=== PATIENT | female | born 1985 | race Caucasian/White ===

== ENCOUNTER 2020-01-21 09:23 | Emergency (ER) | payer SELFPAY ==
--- NOTE | 2020-01-21 09:51 | Emergency Department Report ---
ED Female HPI - General Chief complaint: Vaginal Bleeding Stated complaint: 9 WKS PREG AND VAGINAL BLEEDING Time Seen by Provider: 01/21/20 09:44 Source: patient Mode of arrival: Ambulatory Limitations: No Limitations - History of Present Illness Initial comments: Patient is a 34-year-old female presents emergency room with complaints of very light vaginal spotting which occurred this morning when she wiped. She denies any heavy bleeding. She states that she has some mild lower abdominal cramping. She states that she is approximately 10 weeks . She states that her [facility] is going to be at [facility] and her first appointment is on 01/24/2020. She has not yet had this confirmed. She denies any dysuria, nausea, vomiting, fever. She states her last menstrual cycle was November 14, 2019. She has a PMHx of preclampsia in third trimester with her previous . she denies any allergies to medications. /P:3/A:0 - Related Data Home Medications Medication Instructions Recorded Confirmed Last Taken No Known Home Medications [No 10/30/15 10/30/15 Unknown Reported Home Medications] Allergies Allergy/AdvReac Type Severity Reaction Status Date / Time avocado Allergy Anaphylaxis Unverified 10/28/15 20:58 banana Allergy Anaphylaxis Unverified 10/28/15 20:58 watermelon Allergy Anaphylaxis Unverified 10/28/15 20:58 ED Review of Systems ROS: Stated complaint: 9 WKS PREG AND VAGINAL BLEEDING Other details as noted in HPI Comment: All other systems reviewed and negative ED Past Medical Hx - Past Medical History Previous Medical History?: Yes Hx Hypertension: No Hx Congestive Heart Failure: No Hx Diabetes: No Hx Deep Vein Thrombosis: No Hx Renal Disease: No Hx Sickle Cell Disease: No Hx Seizures: No Hx Asthma: No Hx COPD: No Hx HIV: No Additional medical history: Vaginal delivery x 3 - Surgical History Past Surgical History?: No - Social History Smoking Status: Never Smoker Substance Use Type: None - Medications Home Medications: Home Medications Medication Instructions Recorded Confirmed Last Taken Type No Known Home Medications [No 10/30/15 10/30/15 Unknown History Reported Home Medications] ED Physical Exam - General Limitations: No Limitations General appearance: alert, in no apparent distress - Head Head exam: Present: atraumatic, normocephalic - Eye Eye exam: Present: normal appearance - ENT ENT exam: Present: mucous membranes moist - Respiratory Respiratory exam: Present: normal lung sounds bilaterally. Absent: respiratory distress, wheezes, rales, rhonchi, stridor, chest wall tenderness, accessory muscle use, decreased breath sounds, prolonged expiratory - Cardiovascular Cardiovascular Exam: Present: regular rate, normal rhythm, normal heart sounds. Absent: systolic murmur, diastolic murmur, rubs, gallop - GI/Abdominal GI/Abdominal exam: Present: soft, normal bowel sounds. Absent: distended, tende rness, guarding, rebound, rigid - Neurological Exam Neurological exam: Present: alert, oriented X3 - Psychiatric Psychiatric exam: Present: normal affect, normal mood - Skin Skin exam: Present: warm, dry, intact ED Course Vital Signs 01/21/20 01/21/20 01/21/20 09:29 09:30 10:06 Temperature 98.5 F 98.5 F Pulse Rate 96 H 90 Respiratory 20 18 18 Rate Blood Pressure 131/79 131/79 O2 Sat by Pulse 99 100 Oximetry 01/21/20 01/21/20 10:48 12:24 Temperature Pulse Rate 90 Respiratory 18 Rate Blood Pressure 98/71 O2 Sat by Pulse 99 100 Oximetry ED Medical Decision Making - Lab Data Result diagrams: 01/21/20 09:54 Lab Results 01/21/20 01/21/20 01/21/20 Range/Units 09:54 09:54 09:54 WBC 8.0 (4.5-11.0) K/mm3 RBC 4.29 (3.65-5.03) M/mm3 Hgb 13.0 (10.1-14.3) gm/dl Hct 38.7 (30.3-42.9) % MCV 90 (79-97) fl MCH 30 (28-32) pg MCHC 34 (30-34) % RDW 13.8 (13.2-15.2) % Plt Count 302 (140-440) K/mm3 Lymph % (Auto) 25.8 (13.4-35.0) % Wake % (Auto) 5.4 (0.0-7.3) % Eos % (Auto) 1.3 (0.0-4.3) % Baso % (Auto) 0.4 (0.0-1.8) % Lymph # 2.1 (1.2-5.4) K/mm3 Wake # 0.4 (0.0-0.8) K/mm3 Eos # 0.1 (0.0-0.4) K/mm3 Baso # 0.0 (0.0-0.1) K/mm3 Seg Neutrophils % 67.1 (40.0-70.0) % Seg Neutrophils # 5.3 (1.8-7.7) K/mm3 HCG, Quant 73300 H (0-4) mIU/mL Urine Color (Yellow) Urine Turbidity (Clear) Urine pH (5.0-7.0) Ur Specific [place] (1.003-1.030) Urine Protein (Negative) mg/dL Urine Glucose (UA) (Negative) mg/dL Urine Ketones (Negative) mg/dL Urine Blood (Negative) Urine Nitrite (Negative) Urine Bilirubin (Negative) Urine Urobilinogen (<2.0) mg/dL Ur Leukocyte Esterase (Negative) Urine WBC (Auto) (0.0-6.0) /HPF Urine RBC (Auto) (0.0-6.0) /HPF U Epithel Cells (Auto) (0-13.0) /HPF Urine Bacteria (Auto) (Negative) /HPF Blood Type O POSITIVE Ord Rhogam Gestat Weeks Rh pos WEEKS 01/21/20 Range/Units 10:48 WBC (4.5-11.0) K/mm3 RBC (3.65-5.03) M/mm3 Hgb (10.1-14.3) gm/dl Hct (30.3-42.9) % MCV (79-97) fl MCH (28-32) pg MCHC (30-34) % RDW (13.2-15.2) % Plt Count (140-440) K/mm3 Lymph % (Auto) (13.4-35.0) % Wake % (Auto) (0.0-7.3) % Eos % (Auto) (0.0-4.3) % Baso % (Auto) (0.0-1.8) % Lymph # (1.2-5.4) K/mm3 Wake # (0.0-0.8) K/mm3 Eos # (0.0-0.4) K/mm3 Baso # (0.0-0.1) K/mm3 Seg Neutrophils % (40.0-70.0) % Seg Neutrophils # (1.8-7.7) K/mm3 HCG, Quant (0-4) mIU/mL Urine Color Straw (Yellow) Urine Turbidity Clear (Clear) Urine pH 8.0 H (5.0-7.0) Ur Specific [place] 1.004 (1.003-1.030) Urine Protein <15 mg/dl (Negative) mg/dL Urine Glucose (UA) Neg (Negative) mg/dL Urine Ketones Neg (Negative) mg/dL Urine Blood Sm (Negative) Urine Nitrite Neg (Negative) Urine Bilirubin Neg (Negative) Urine Urobilinogen < 2.0 (<2.0) mg/dL Ur Leukocyte Esterase Tr (Negative) Urine WBC (Auto) < 1.0 (0.0-6.0) /HPF Urine RBC (Auto) 1.0 (0.0-6.0) /HPF U Epithel Cells (Auto) 2.0 (0-13.0) /HPF Urine Bacteria (Auto) 1+ (Negative) /HPF Blood Type Ord Rhogam Gestat Weeks WEEKS - Radiology Data Radiology results: report reviewed OB ultrasound FINDINGS: Intrauterine gestational sac is seen with a yolk sac but no pole identified. Gestational sac measurements reveal an MA of 6 weeks 4 days for an CARMITA of 09/11/2020 but again no pole is identified. Left ovary measures 2.5 x 2.1 x 1.4 cm and appears normal. The right ovary measures 3.5 x 3 x 1.7 cm and contains a simple appearing 2.1 cm corpus luteum cyst. Is minimal free fluid. IMPRESSION: Early IUP versus demise. Correlation with beta hCG levels may be of benefit. Signer Name: Zaid Jackson MD Signed: 01/21/2020 11:02 AM Workstation Name: [id number] Transcribed By: RICARDO Dictated By: Zaid Jackson MD Electronically Authenticated By: Zaid Jackson MD Signed Date/Time: 01/21/20 1102 DD/ 1059 TD/TT: - Medical Decision Making Patient is a 34-year-old female presents emergency room with complaints of very light vaginal spotting which occurred this morning when she wiped. She denies any heavy bleeding. She states that she has some mild lower abdominal cramping. She states that she is approximately 10 weeks . She states that her [facility] is going to be at my [facility] and her first appointment is on 01/24/2020. She has not yet had this confirmed. She denies any dysuria, nausea, vomiting, fever. She states her last menstrual cycle was November 14, 2019. She has a PMHx of preclampsia in third trimester with her previous . she denies any allergies to medications. /P:3/A:0. Vitals are normal. No abnormality on physical examination as documented in chart. [place] [address]. UA without evidence of UTI. US OB: Early IUP versus demise. Correlation with beta hCG levels may be of benefit. Patient has no previous hCG quant's to compare to. Discussed all results with patient and discussed threatened miscarriage. pt given copy of her US report to take to the [facility]. Advised patient Please practice pelvic rest. Please follow-up with your [facility] in the next 2 to 3 days, you need to have a repeat hCG quant. Today (01/21/20) [place] [id number]. return to the emergency room for any new or worsening symptoms. - Differential Diagnosis IUP, ectopic, miscarriage, subchorionic hemorrhage, ovarian cyst, UTI Critical care attestation.: If time is entered above; I have spent that time in minutes in the direct care of this critically ill patient, excluding procedure time. ED Disposition Clinical Impression: Threatened miscarriage Disposition: DC-01 TO HOME OR SELFCARE Is pt being admited?: No Does the pt Need Aspirin: No Condition: Stable Instructions: Threatened Miscarriage (ED) Additional Instructions: Please practice pelvic rest. Please follow-up with your [facility] in the next 2 to 3 days, you need to have a repeat hCG quant. Today (01/21/20) [place] quant was [id number]. return to the emergency room for any new or worsening symptoms. Referrals: [facility] [Provider Group] - 2-3 Days Time of Disposition: 12:03 Print Language: [place]LAND[place]
[2020-01-21] MEDS ORDERED: ACETAMINOPHEN 325 MG TAB PO ONE (09:52)
[2020-01-21 10:21] LABS: Basophils % (Auto) 0.4 % (0.0-1.8); Eosinophils # (Auto) 0.1 K/mm3 (0.0-0.4); Eosinophils % (Auto) 1.3 % (0.0-4.3); Hematocrit 38.7 % (30.3-42.9); Lymphocytes # (Auto) 2.1 K/mm3 (1.2-5.4); Lymphocytes % (Auto) 25.8 % (13.4-35.0); Mean Corpuscular HGB Conc 34 % (30-34); Mean Corpuscular Volume 90 fl (79-97); Monocytes # (Auto) 0.4 K/mm3 (0.0-0.8); Monocytes % (Auto) 5.4 % (0.0-7.3); Platelet Count 302 K/mm3 (140-440); Red Blood Count 4.29 M/mm3 (3.65-5.03); Red Cell Distribution Width 13.8 % (13.2-15.2)
--- NOTE | 2020-01-21 11:06 | Ultrasound Report ---
OB ultrasound FINDINGS: Intrauterine gestational sac is seen with a yolk sac but no pole identified. Gestatio nal sac measurements reveal an MA of 6 weeks 4 days for an CARMITA of 09/11/2020 but again no pole i s identified. Left ovary measures 2.5 x 2.1 x 1.4 cm and appears normal. The right ovary measures 3.5 x 3 x 1.7 cm and contains a simple appearing 2.1 cm corpus luteum cyst. Is minimal free fluid. IMPRESSION: Early IUP versus demise. Correlation with beta hCG levels may be of benefit. Signer Name: Zaid Jackson MD Signed: 01/21/2020 11:02 AM Workstation Name: [id number]
[2020-01-21 11:46] LABS: Bacteria,Urine 1+ /HPF (Negative); Bilirubin,Urine NEG (Negative); Blood,Urine SM (Negative); Color,Urine Straw (Yellow); Protein,Urine <15 mg/dL mg/dL (Negative); Urobilinogen,Urine < 2.0 mg/dL (<2.0); WBC,Urine < 1.0 /HPF (0.0-6.0)
[2020-01-21 12:39] VITALS: BP 98/71
== END 2020-01-21 12:30 | disposition home or self-care (01) ==
LOC: ED 09:23
DX: O20.0 Threatened abortion (principal); Z3A.08 8 weeks gestation of pregnancy; Z88.8 Allergy status to other drugs, medicaments and biological substances
CPT/HCPCS: 36415; 76801; 76802; 76817; 81001; 84702; 85025; 86900; 86901

== ENCOUNTER 2020-06-05 18:01 | Outpatient (CLI) | payer OTHER ==
[2020-06-05] MEDS ORDERED: LACTATED RINGERS 1,000 ML IV SCH (19:00)
[2020-06-05 19:23] LABS: Bacteria,Urine 4+ /HPF (Negative); Bilirubin,Urine NEG (Negative); Blood,Urine SM (Negative); Color,Urine Straw (Yellow); Mucus,Urine FEW /HPF; Protein,Urine <15 mg/dL mg/dL (Negative); Urobilinogen,Urine < 2.0 mg/dL (<2.0)
[2020-06-05 22:21] VITALS: BP 114/67
--- NOTE | 2020-06-06 01:12 | Ultrasound Report ---
EXAMINATION: Renal ultrasound, 06/06/2020 CLINICAL INFORMATION: Left flank pain. The patient is . COMPARISON: None. FINDINGS: Both kidneys appear normal in size and echogenicity. The right kidney measures 13.3 cm. The left kidney measures 12.0 cm. There is no evidence of hydronephrosis. The urinary bladder appears within normal limits. IMPRESSION: No sonographic abnormality of either kidney. Signer Name: Chasity Chung MD Signed: 06/06/2020 1:07 AM Workstation Name: [id number]
== END 2020-06-06 01:29 | disposition home or self-care (01) ==
LOC: TRG 18:01 → APU 18:02 → TRG 06-06 01:29
PROVIDERS: ATTEND Obstetrics & Gynecology
DX: O26.892 Other specified pregnancy related conditions, second trimester (principal); M54.5 Low back pain; R10.11 Right upper quadrant pain; Z3A.25 25 weeks gestation of pregnancy
CPT/HCPCS: 59025; 76770; 81001

== ENCOUNTER 2020-11-30 06:42 | Day surgery (SDC) | payer OTHER ==
--- NOTE | 2020-11-28 08:15 | History and Physical Report ---
History of Present Illness Date of examination: 11/27/20 History of present illness: Patient has been reassessed/reevaluated. H&P has been reviewed. No interval changes. 35 YO patient desires sterilization. Discussed with various methods of contraceptives including abstinence, barrier and hormonal. Discussed oral, imp lantable, dermal, injectable,intravaginal and intrauterine methods. Patient declined temporary contraceptives. Discuss the permanency of sterilization. High risk of regret and 0.5 to 1% risk of failure. Questions answered Patient understands and desires to proceed. Vital Signs: Patient Profile: 35 Years Old Female LMP: 11/23/2020 Height: 64 inches Weight: 179 pounds BMI: 30.72 Temp: 96.4 degrees F BP sittin / 80 (left arm) Menstrual History: LMP (date): 11/23/2020 LMP - Character: normal On BCP's at conception: no Current Method of Contraception: None Date of Last Pap Smear: 04/02/2015 Past History : 4 Term Births: 4 Premature Births: 0 Living Children: 4 Para: 4 Mult. Births: 0 Prev : 0 Aborta: 0 Elect. Ab: 0 Spont. Ab: 0 Ectopics: 0 # 1 Delivery date: 09/24/2001 Weeks Gestation: 39 Delivery type: Anesthesia type: epidural Delivery location: [place] Infant Sex: Male weight: 6-15 Name: Woo # 2 Delivery date: 10/29/2015 Weeks Gestation: 38 Delivery type: Vaginal Anesthesia type: epidural Infant Sex: female weight: 7.50 Comments: pre-eclampsia/eclampsia # 3 Delivery date: 08/21/2017 Weeks Gestation: 39 labor: no Delivery type: Hours of labor: 24 Anesthesia type: epidural Delivery location[place] [facility] [place] Sex: Female weight: 7-? 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 of genital herpes: no Partner hx. of genital herpes: no Hx of STD: none Current Allergies: No known allergies Past Medical History: Negative Past Medical History Past Surgical History: Negative Past Surgical History Family History Summary: Other Family Member - Has No Family History of Ovarvian Cancer - Entered On: 04/02/2015 Other Family Member - Has No Family History of Hypertension - Entered On: 04/02/2015 Other Family Member - Has No Family History of Diabetes - Entered On: 04/02/2015 Other Family Member - Has No Family History of Colon Cancer - Entered On: Other Family Member - Has No Family History of Cervical Cancer - Entered On: 04/02/2015 Other Family Member - Has No Family History of Breast Cancer - Entered On: 04/02/2015 Social History: Marital Status: Children: 4 Occupation: unemployed Smoking History: Patient has never smoked. Risk Factors: Smoked Tobacco Use: Never smoker Smokeless Tobacco Use: Never Passive smoke exposure: no Drug use: no HIV high-risk behavior: no Caffeine use: 1 drinks per day Alcohol use: no Exercise: yes Times per week: 7 Seatbelt use: 100 % PAP Smear History: Date of Last PAP Smear: 04/02/2015 Review of Systems General Denies fever, chills, sweats, anorexia, fatigue, weakness, malaise, weight loss and sleep disorder. Denies vaginal discharge, incontinence, dysuria, hematuria, urinary frequency, amenorrhea, menorrhagia, abnormal vaginal bleeding, pelvic pain, genital sores, decreased libido, painful periods, painful sex, urinary urgency, hot flashes, vaginal dryness, vaginal itching and vaginal odor. CV Denies chest pains, palpitations, syncope, dyspnea on exertion, orthopnea, PND and peripheral edema. Resp Denies cough, dyspnea at rest, excessive sputum, hemoptysis, wheezing and pleurisy. GI Denies nausea, vomiting, diarrhea, constipation, change in bowel habits, abdominal pain, melena, hematochezia, jaundice, gas/bloating, indigestion/heartburn, dysphagia and odynophagia. Breast Denies left breast lump, right breast lump, nipple discharge, bloody discharge from nipple, breast pain, abnormal mammogram and breast enlargement. Psych Denies depression, anxiety, irritability and mood swings. Past History Past Medical History: No medical history, other (SEE HPI FOR DETAILS) Past Surgical History: Other (SEE HPI FOR DETAILS) Social history: single, other (SEE HPI FOR DETAILS) Family history: other (SEE HPI FOR DETAILS) Medications and Allergies Allergies Allergy/AdvReac Type Severity Reaction Status Date / Time avocado Allergy Anaphylaxis Unverified 11/23/20 14:57 banana Allergy Anaphylaxis Unverified 11/23/20 14:57 watermelon Allergy Anaphylaxis Unverified 11/23/20 14:57 Home Medications Medication Instructions Recorded Confirmed Last Taken Type No Known Home Medications [No 10/30/15 11/23/20 Unknown History Reported Home Medications] Review of Systems Constitutional: other (SEE HPI FOR DETAILS) Exam - Physical Exam Narrative exam: HEENT: normocephalic, no lesions or deformities Skin no ulcers, xanthomas Chest: respiratory effort normal, clear to auscultation CV: regular, normal S1-S2, no murmur, no rub, no gallop Abdomen: soft, non-tender, no masses, bowel sounds normal Neuro: no gross anomalities Extremities: normal alignment, no joint enlargement, crepitus, masses or tenderness; 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 No evidence of cystocele or rectocele. Cervix: normal appearance, no lesions, no discharge Uterus: normal position, midline, mobile Adnexae: no masses or tenderness Rectovaginal: exam defered Assessment and Plan - Patient Problems (1) Encounter for female sterilization procedure Current Visit: No Status: Acute Plan to address problem: Patient desires sterilization.Discuss the permanency of sterilization. High risk of regret and 0.5 to 1% risk of failure. Discussed options of tubal blockage and salpingectomy and it's possible benefit of preventing ovarian cancer and increased risks of bleeding during the procedure. Discuss the risks of the surgery including infection, bleeding possibly heavy enough to require a blood transfusion, possilble damage to bowel, bladder or ureter. Patient understands and desires to proceed with salpingectomy.
[~2020-11-30 06:42] MED LIST: ACETAMINOPHEN 500 MG TAB PO SCH; CELECOXIB 200 MG CAP PO NR; GABAPENTIN 300 MG CAP PO NR; LACTATED RINGERS 1,000 ML IV SCH; MIDAZOLAM 2 MG/2 ML INJ IV NR
--- NOTE | 2020-11-30 08:27 | Anesthesia Consultation ---
Anesthesia Consult and Med Hx Date of service: 11/30/20 - Airway Anesthetic Teeth Evaluation: Good ROM Head & Neck: Adequate Mental/Hyoid Distance: Adequate Mallampati Class: Class II Intubation Access Assessment: Probably Good - Pulmonary Exam CTA: Yes - Cardiac Exam Cardiac Exam: RRR - Pre-Operative Health Status ASA Pre-Surgery Classification: ASA1 Proposed Anesthetic Plan: General - Pulmonary Hx Smoking: No Hx Respiratory Symptoms: No - Cardiovascular System Hx Hypertension: No - Central Nervous System CVA: No - Endocrine Hx Renal Disease: No Hx Liver Disease: No Hx Insulin Dependent Diabetes: No Hx Non-Insulin Dependent Diabetes: No Hx Thyroid Disease: No - Additional Comments Anesthesia Medical History Comments: No prior GA, no FHx anesthetic complications.
--- NOTE | 2020-11-30 08:27 | Anesthesia Day of Surgery ---
Anesthesia Day of Surgery - Day of Surgery Patient Examined: Yes Patient H&P Reviewed: Yes Patient is NPO: Yes
[2020-11-30] MEDS ORDERED: fentaNYL 100 MCG/2 ML INJ ONE (08:40)
[2020-11-30] MEDS ORDERED: propofoL 200 MG/20 ML VIAL IV ONE (08:40)
[2020-11-30] MEDS ORDERED: BUPIVACAINE/PF (0.5%) 5 MG/1 ML 10 ML VIAL INFILTRATI ONE ×2 (08:47→09:27)
[2020-11-30] MEDS ORDERED: SODIUM CHLORIDE 0.9% IRR 1,500 ML BOTTLE IR ONE (09:27)
[2020-11-30] MEDS ORDERED: LIDOCAINE MPF (2%) 20 MG/1 ML VIAL 5 ML ONE (09:33)
[2020-11-30] MEDS ORDERED: dexAMETHasone 20 MG/5 ML VIAL ONE (09:33)
[2020-11-30] MEDS ORDERED: GLYCOPYRROLATE 0.4 MG/2 ML INJ ONE (09:33)
[2020-11-30] MEDS ORDERED: NEOSTIGMINE 10MG/10 ML INJ MDV ONE (09:33)
[2020-11-30] MEDS ORDERED: KETOROLAC 30 MG/1 ML INJ ONE (09:33)
[2020-11-30] MEDS ORDERED: ROCURONIUM 50 MG/5 ML INJ IV ONE (09:33)
[2020-11-30] MEDS ORDERED: SUCCINYLCHOLINE CHLORIDE 200 MG/10 ML INJ MDV ONE (09:33)
[2020-11-30] MEDS ORDERED: ONDANSETRON 4 MG/2 ML INJ ONE (09:33)
--- NOTE | 2020-11-30 10:05 | Operative Report ---
Operative Report Operative Report: Date of procedure: November 30, 2020 Pre-operative diagnosis: Patient desires permanent sterilization Post-operative diagnosis: Same Procedure name(s): Laparoscopic bilateral salpingectomy Surgeon: Shahid Mei MD Cleaners: [] Anesthesia: General endotracheal EBL: Minimal Complications: None Findings: Patient with uterus approximately 8-10 weeks in size with normal fallopian tubes and ovaries bilaterally Specimen(s): Bilateral fallopian tubes Patient was brought in the operating room. General anesthesia was induced without difficulty. She was placed in dorsal lithotomy position. Prepped and draped in usual sterile manner. Her urinary bladder with was emptied with a red rubber catheter. Speculum placed in her vagina and Sargis uterine manipulator was placed for uterine manipulation without difficulty. Attention was then switched to the patient's abdomen. An infra-umbilical incision was made with a scalpel. This incision was spread with a hemostat. A 5 mm trocar was placed in this incision while lifting high the abdominal wall. Intra-abdominal presence was verified directly with the laparoscope. The patient was then insufflated to approximately 3 L of CO2 gas. The patient's findings as noted above. An accessory puncture was made suprapubically. The 8 mm trocar was placed through this incision under direct visualization with no evidence of internal organ damage. Each of the fallopian tube were identified by its fimbriated end. Starting with the right fallopian tube approximately 1 to 2 cm from the cornea LigaSure device was used to cross sectional cut the tube. From this point the ligature device was used to cauterize and cut the mesosalpinx until the fimbriated end was reached detaching the tube. The fallopian tube was then removed through the accessory port attention was then switched to the contralateral tube. Same procedure was performed detaching that tube and removed it through the accessory port. The remaining stump was inspected and found to be hemostatic. At this time all instruments were removed. The patient was de-insufflated. The skin incisions were closed subcuticularly with 4-0 Vicryl. Marcaine was injected into the surgical incisions, for postoperative pain relief. The patient tolerated procedure well. She was awakened in the operating room and accompanied to the recovery room in good condition.
--- NOTE | 2020-11-30 10:07 | Short Stay Summary ---
Short Stay Documentation Date of service: 11/30/20 - History Past Medical History: No medical history, other (SEE HPI FOR DETAILS) Past Surgical History: Other (SEE HPI FOR DETAILS) Social history: single, other (SEE HPI FOR DETAILS) - Allergies and Medications Current Medications: Allergies avocado Allergy (Verified 11/30/20 09:34) Anaphylaxis banana Allergy (Verified 11/30/20 09:34) Anaphylaxis watermelon Allergy (Verified 11/30/20 09:34) Anaphylaxis Home Medications Medication Instructions Recorded Confirmed Last Taken Type oxyCODONE /ACETAMINOPHEN [Percocet 1 - 2 tab PO Q6HR PRN #10 tablet 11/30/20 Unknown Rx 5/325 mg] Active Medications Acetaminophen (Acetaminophen 500 Mg Tab) 1,000 mg PO PREOP REGINO Stop: 11/30/20 23:59 Last Admin: 11/30/20 08:35 Dose: 1,000 mg Documented by: Celecoxib (Celecoxib 200 Mg Cap) 200 mg PO PREOP NR Stop: 11/30/20 23:59 Last Admin: 11/30/20 08:35 Dose: 200 mg Documented by: Gabapentin (Gabapentin 300 Mg Cap) 300 mg PO PREOP NR Stop: 11/30/20 23:59 Last Admin: 11/30/20 08:35 Dose: 300 mg Documented by: Lactated Ringer's (Lactated Ringers) 1,000 mls @ 100 mls/hr IV DIRECT REGINO Stop: 11/30/20 23:59 Last Admin: 11/30/20 08:50 Dose: 100 mls/hr Documented by: Midazolam HCl (Midazolam 2 Mg/2 Ml Inj) 2 mg IV PREOP NR Stop: 11/30/20 23:59 Last Admin: 11/30/20 08:51 Dose: 2 mg Documented by: - Physical exam HEENT: Atraumatic Lungs: Normal air movement Breasts: deferred Heart: Regular rate Gastrointestinal: distended (Slightly post laparoscopy), other (Intact laparoscopic closures) Female Genitourinary: deferred Rectal Exam: deferred Extremities: no ischemia - Brief post op/procedure progress note Date of procedure: 11/30/20 (See dictated operative note for details) Condition: stable - Hospital course Hospital course: Patient was admitted underwent the above him procedure without any complications. Patient will be discharged with follow-up in office in 1-2 weeks for postop check. - Disposition Condition at discharge: Good Disposition: DC-01 TO HOME OR SELFCARE - Discharge Diagnoses (1) Encounter for female sterilization procedure Status: Acute Short Stay Discharge Plan Activity: advance as tolerated Diet: regular Wound: open to air Additional Instructions: Patient to call office for any fever, chills, nausea, vomiting or pain not controlled by pain medication. Patient to keep scheduled postoperative visit. Follow up with: CHRISTINE PANDA MD [Primary Care Provider] - 7 Days Prescriptions: oxyCODONE /ACETAMINOPHEN [Percocet 5/325 mg] 1 - 2 tab PO Q6HR PRN #10 tablet PRN Reason: Pain
--- NOTE | 2020-11-30 13:38 | Post Anesthesia Evaluation ---
- Post Anesthesia Evaluation Patient Participated: Yes Airway Patent: Yes Stable Respiratory Function: Yes Nausea/Vomiting: No Temp > 96.8F: Yes Pain Manageable: Yes Adequeate Hydration: Yes Anesthesia Complications: No
[2020-11-30 13:44] VITALS: BP 114/71
== END 2020-11-30 06:43 | disposition home or self-care (01) ==
LOC: OR 06:42
PROVIDERS: ATTEND Obstetrics & Gynecology
DX: Z30.2 Encounter for sterilization (principal); Z88.8 Allergy status to other drugs, medicaments and biological substances; Z79.899 Other long term (current) drug therapy; Z98.890 Other specified postprocedural states
CPT/HCPCS: 58670; 81025; 88302; J0330; J1100; J1885; J2250; J2405; J2704; J2710; J3010; J7120